=== PATIENT | male | born 1950 | race Caucasian/White ===

== ENCOUNTER 2020-05-01 09:00 | Day surgery (SDC) | payer OTHER ==
[~2020-05-01] VITALS: Ht 172.7 cm; Wt 84.0 kg
[2020-05-01] MEDS ORDERED: ceFAZolin SODIUM IV Push 1 GM VIAL. IVP ONE (09:30)
--- NOTE | 2020-05-01 09:44 | RAD ---
EXAM: PA, oblique and lateral views right hand DATE: 05/01/2020 9:06 AM INDICATION: Reason: partial amputation to 3rd digit / Spl. Instructions: / History: COMPARISON: No Prior FINDINGS/ IMPRESSION: 1. Transverse, displaced fracture of the tuft of the distal phalanx of the right middle finger with marked soft tissue irregularity. This is likely an open fracture. 2. Multifocal degenerative changes with proliferative changes centered at the index and middle finger MCP joint and thumb IP joint. Electronically signed by: Daniel Wu MD (05/01/2020 9:41 AM) RICHARD
[2020-05-01] MEDS ORDERED: GENTAMICIN SULFATE 380 MG in IV NORMAL SALINE 100ML 100 ML IV ONE (10:00)
[2020-05-01] MEDS ORDERED: fentaNYL PF VIAL 100 MCG/2 ML VIAL ONE ×2 (10:03→12:15)
[2020-05-01] MEDS ORDERED: PROPOFOL 10 MG/ML (20ML) VIAL. IV ONE (10:03)
[2020-05-01] MEDS ORDERED: DEXAMETHASONE SOD PHOS 4 MG/ML VIAL ONE (10:04)
[2020-05-01] MEDS ORDERED: ONDANSETRON PF 4 MG/2 ML VIAL. ONE (10:04)
[2020-05-01] MEDS ORDERED: LIDOCAINE 2% PF 5 ML VIAL. ONE (10:04)
[2020-05-01] MEDS ORDERED: BUPIVACAINE MPF 0.5% 30 ML VIAL. ONE ×2 (11:01→11:46)
--- NOTE | 2020-05-01 11:05 | PHYS DOC ---
Past Medical History Past Medical History: High Cholesterol, Hypertension Past Surgical History: No Surgical History Smoking Status: Current Every Day Smoker Alcohol Use: Occasionally General Adult EDM: Chief Complaint: TRAUMA ALERT HPI: HPI: History obtained from patient. Patient is a 16-year-old male who denies any past medical history who presents with chief complaint of right long finger injury. Patient states just prior to arrival he was working on mechanical parts when he got his finger pinched between them. He pulled his hand back and noted a near amputation of the distal portion of his third finger on the right. He does state he is right-handed. He states the pain is minimal. States the bleeding is been well controlled. Denies numbness or tingling. States he is current on his tetanus. No other complaints. Review of Systems: Review of Systems: Constitutional: Denies fever or chills. [] Eyes: Denies change in visual acuity. [] HENT: Denies nasal congestion or sore throat. [] Respiratory: Denies cough or shortness of breath. [] Cardiovascular: Denies chest pain or edema. [] GI: Denies abdominal pain, nausea, vomiting, bloody stools or diarrhea. [] : Denies dysuria. [] Musculoskeletal positive for right long finger amputation Integument: Denies rash. [] Neurologic: Denies headache, focal weakness or sensory changes. [] Endocrine: Denies polyuria or polydipsia. [] Lymphatic: Denies swollen glands. [] Psychiatric: Denies depression or anxiety. [] Heart Score: Risk Factors: Risk Factors: DM, Current or recent (<one month) smoker, HTN, HLP, family history of CAD, obesity. Risk Scores: Score 0 - 3: 2.5% MACE over next 6 weeks - Discharge Home Score 4 - 6: 20.3% MACE over next 6 weeks - Admit for Clinical Observation Score 7 - 10: 72.7% MACE over next 6 weeks - Early Invasive Strategies Current Medications: Current Medications Medications (Trade) Dose Ordered Sig/Cipriano Start Time Stop Time Status Last Admin Dose Admin Cefazolin Sodium (Ancef) 1 gm 1X ONCE 05/01/20 09:30 05/01/20 09:31 DC 05/01/20 09:20 1 GM Dexamethasone Sodium Phosphate (Decadron) 4 mg STK-MED ONCE 05/01/20 10:04 05/01/20 10:04 DC Fentanyl Citrate (Fentanyl 2ml Vial) 100 mcg STK-MED ONCE 05/01/20 10:03 05/01/20 10:04 DC Gentamicin Sulfate 380 mg/ Sodium Chloride 109.5 ml @ 109.5 mls/ hr 1X ONCE 05/01/20 10:00 05/01/20 10:59 DC 05/01/20 09:56 109.5 MLS/HR Lidocaine HCl (Lidocaine Pf 2% Vial) 5 ml STK-MED ONCE 05/01/20 10:04 05/01/20 10:04 DC Ondansetron HCl (Zofran) 4 mg STK-MED ONCE 05/01/20 10:04 05/01/20 10:04 DC Propofol (Diprivan) 200 mg STK-MED ONCE 05/01/20 10:03 05/01/20 10:04 DC Allergies: Allergies: Allergies Coded Allergies Type Severity Reaction Last Updated Verified No Known Drug Allergies 05/01/20 No Physical Exam: PE: Constitutional: Well developed, well nourished, no acute distress, non-toxic appearance. [] HENT: Normocephalic, atraumatic, bilateral external ears normal, oropharynx moist, no oral exudates, nose normal. [] Eyes: PERRLA, EOMI, conjunctiva normal, no discharge. [] Neck: Normal range of motion, no tenderness, supple, no stridor. [] Cardiovascular:Heart rate regular rhythm, no murmur [] Lungs & Thorax: Bilateral breath sounds clear to auscultation [] Abdomen: soft, no tenderness, no masses, no pulsatile masses. [] Skin: Warm, dry, no erythema, no rash. [] Back: No tenderness, no CVA tenderness. [] Extremities: R Hand: Open fracture near complete amputation noted to the distal portion of the third right digit. Laceration begins distal to the DIP. Bleeding well controlled. Bone visualized. Flexion and extension mechanism intact. +2-4 radial pulse on the right. Cardinal hand movements intact. Neurologic: Alert and oriented X 3, normal motor function, normal sensory function, no focal deficits noted. [] Psychologic: Affect normal, judgement normal, mood normal. [] Current Patient Data: Labs: Laboratory Tests Test 05/01/20 10:01 SARS-CoV-2 Antigen (Rapid) Negative (NEGATIVE) Vital Signs: Vital Signs Date Time Temp Pulse Resp B/P (MAP) Pulse Ox O2 Delivery O2 Flow Rate FiO2 05/01/20 09:02 98.3 73 16 129/75 (93) 93 Room Air 98.3 EKG: EKG: [] Radiology/Procedures: Radiology/Procedures: [facility] [address] [place] [address] IMAGING REPORT Signed PATIENT: LARY LINDSAY ACCOUNT: [id number] : 1950 LOCATION: ER AGE: 69 SEX: M EXAM STATUS: PRE ER ORD. PHYSICIAN: BRANDEE ARNOLD DO REASON: partial amputation to 3rd digit PROCEDURE: HAND RIGHT 3V EXAM: PA, oblique and lateral views right hand DATE: 05/01/2020 9:06 AM INDICATION: Reason: partial amputation to 3rd digit / Spl. Instructions: / History: COMPARISON: No Prior FINDINGS/ IMPRESSION: 1. Transverse, displaced fracture of the tuft of the distal phalanx of the right middle finger with marked soft tissue irregularity. This is likely an open fracture. 2. Multifocal degenerative changes with proliferative changes centered at the index and middle finger MCP joint and thumb IP joint. Electronically signed by: Daniel Wu MD (05/01/2020 9:41 AM) [facility] DICTATED and SIGNED BY: DANIEL WU MD DATE: 05/01/20 0941 [] Course & Med Decision Making: Course & Med Decision Making Pertinent Labs and Imaging studies reviewed. (See chart for details) [] Patient is a very pleasant right-handed 69-year-old male who presents with chief complaint of right third digit near complete amputation. Clinically the patient does have obvious open fracture with near complete amputation. Plain film imaging consistent with this. Patient states he is current on tetanus. Wound irrigation performed. He was given gentamicin and Ancef given the dirty nature of the wound. Orthopedic surgery was consulted for operative intervention including washout and fixation. Patient was made n.p.o. He will be taken to surgery for further care. Dragon Disclaimer: Dragon Disclaimer: This electronic medical record was generated, in whole or in part, using a voice recognition dictation system. Departure Departure Impression: Primary Impression: Traumatic amputation of digit of right hand Qualified Codes: S68.119A - Complete traumatic metacarpophalangeal amputation of unspecified finger, initial encounter Disposition: 09 ADMITTED INPT THIS HOSP Condition: STABLE Referrals: NO PCP (PCP) BRANDEE ARNOLD DO May 01, 2020 11:05
[2020-05-01] MEDS ORDERED: IV RINGERS,LACTATED 1000ML 1,000 ML IV SCH (11:19)
[2020-05-01] MEDS ORDERED: ONDANSETRON PF 4 MG/2 ML VIAL. IV PRN (11:30)
[2020-05-01] MEDS ORDERED: fentaNYL PF VIAL 100 MCG/2 ML VIAL IV PRN ×2 (11:30)
[2020-05-01] MEDS ORDERED: HYDROmorphone 2 MG/ML VIAL IV PRN (11:30)
[2020-05-01] MEDS ORDERED: PROCHLORPERAZINE 10 MG/2 ML VIAL. IV PRN (11:30)
[2020-05-01] MEDS ORDERED: MORPHINE SULFATE 2 MG/ML VIAL. IV PRN (11:30)
[2020-05-01] MEDS ORDERED: NEOMY/BACITR/POLYMYXIN OINT PACKET. TP ONE ×2 (11:33→12:00)
[2020-05-01] MEDS ORDERED: ePHEDrine PF IN SALINE 50 MG/10 ML SYRINGE. IV ONE (12:05)
--- NOTE | 2020-05-01 12:23 | CONS ---
DATE OF CONSULTATION: 05/01/2020 EMERGENCY DEPARTMENT CONSULTATION CHIEF COMPLAINT: Crush injury to right long finger. HISTORY OF PRESENT ILLNESS: The patient is a 69-year-old male who was at work as a construction equipment mechanic, working on some mechanical parts when he got his finger forcefully pinched between them and had the end of his finger nearly cut off as he pulled his finger back, and had a large laceration at the base of his nail bed with an open fracture. He presented to the Emergency Department and indicates minimal pain. PAST MEDICAL HISTORY: Significant for hypertension and high cholesterol. PAST SURGICAL HISTORY: No previous surgical history. SOCIAL HISTORY: He does smoke every day half a pack per day, occasional alcohol use, denies nonprescription drug use. FAMILY HISTORY: Notes no significant family history. ALLERGIES: No drug allergies. MEDICATIONS: He is on minimal medications for cholesterol and hypertension. REVIEW OF SYSTEMS: He denies any loss of consciousness. Bleeding has not been excessive. He is right hand dominant and only complains of the pain and deformity of his right long finger. Tetanus is reportedly up-to-date. He does have some paresthesia at the tip of the finger, but no other numbness or tingling in the hand and no other injury. He denies any chest pain, shortness of breath, recent febrile illness, constitutional complaints or other problems. Other review of systems is negative. PHYSICAL EXAMINATION: VITAL SIGNS: Temperature 98.3, pulse 73, respirations 16, blood pressure 129/75, 93% saturation on room air. HEENT: Atraumatic, normocephalic. HEART: Regular rate and rhythm. LUNGS: Clear to auscultation bilaterally. ABDOMEN: Benign. EXTREMITIES: On examination of the right hand reveals an oblique laceration with near traumatic amputation and his finger nail is avulsed. He has open bone exposure at the site of the open fracture. Capillary refill is overall a little delayed, but intact otherwise. He appears to have normal alignment and stability of the DIP joint as well as his other joints in the hand along with an intact flexor and extensor function. Normal examination of the contralateral hand, bilateral elbows and wrists with a small slight paresthesia to his right long fingertip. IMAGING: X-rays show an open distal phalanx fracture with displacement. Joint is well maintained at the distal interphalangeal joint. IMPRESSION: Open distal phalanx fracture with nail bed injury. TREATMENT PLAN: From a crush injury treatment plan, I went over with him the high risk of infection with this injury, the necessity of washing it out thoroughly, repairing the nail bed, pinning it and using the fingernail as a splint. His vascularity of the finger appears reasonable to try to save the fingertip, although it may be a possibility that blood supply is somehow compromised that he could lose the finger and require later amputation either due to bad blood supply or infection or failure to heal, among others. He does wish to proceed with surgical evaluation and treatment urgently as he has been n.p.o. except sips of water in the morning today and we will urgently go to the operating room. ANGELIQUE FERREIRA MD DR: JAIR/malvin JOB#: [id number] / [id number]
[2020-05-01] MEDS ORDERED: HYDROcodone/APAP 5/325MG 1 TAB TABLET PO ONE (13:15)
[2020-05-01 13:28] VITALS: BP 125/39
--- NOTE | 2020-05-05 17:30 | PDOC4 ---
Operative Note Operative Note Date of surgery: 05/01/2020 Preoperative diagnosis: Partial amputation of right long finger with open distal phalanx fracture and nailbed injury Postoperative diagnosis: Same Operative procedure: Irrigation debridement with open reduction fixation open distal phalanx fracture and nailbed repair Surgeon: Stew Anesthesia: General Estimated blood loss: 15 cc Complications: None Operative indications: Please see my dictated orthopedic emergency department consultation for detailed operative indications and note that he sustained a crush injury to his right long fingertip with near amputation open distal phalanx fracture and I went over with him the necessity of open treatment and the risk of infection and nailbed deformity. He does appear to have reasonable distal blood supply from the intact tissue he does want to proceed with surgical evaluation and treatment and understands that he will likely have a pin in his finger for a few weeks to help stabilize the finger fracture for healing. Operative text: Patient was identified procedure verified patient placed in the supine position on the operating table. After adequate amounts of general anesthesia were administered the right upper extremity was prepped and draped in standard sterile fashion with an upper arm tourniquet. After timeout was performed patient procedure identified and verified thorough irrigation was first carried out with normal saline solution and bulb syringe. The remaining attached fingernail was detached from the nail bed and was cleaned of tissue trimmed and placed in dilute Betadine solution. There was minimal devitalized tissue which was lightly debrided and the fingertip was then aligned and fixated with a small K wire with the distal phalange fragments and excellent reduction under fluoroscopic guidance. Nylon sutures were placed in the oblique laceration to the finger pad for stabilization nailbed repair was carried out with catgut suture and the fingernail was reattached at the base of the nail fold with 3-0 nylon suture and it was secured distally to act as a splint with nylon suture in a simple fashion. Thorough irrigation again carried out normal saline solution a protective ball was applied over the end of the K wire to avoid injury and sterile dressings were applied consisting of Xeroform gauze 4 x 4's and tube gauze. Tourniquet was not inflated throughout the procedure and tissue was noted to remain well perfused to the distal fingertip. Patient was returned to recovery room in stable condition having tolerated procedure well ANGELIQUE FERREIRA MD May 05, 2020 17:30
== END 2020-05-01 14:02 | disposition home or self-care (01) ==
LOC: ER 09:00 → SDC 11:50
PROVIDERS: ATTEND Orthopaedic Surgery
DX: S62.632A Displaced fracture of distal phalanx of right middle finger, initial encounter for closed fracture (principal); S67.192A Crushing injury of right middle finger, initial encounter; Z20.828 Contact with and (suspected) exposure to other viral communicable diseases; Z87.891 Personal history of nicotine dependence; Z72.89 Other problems related to lifestyle; Z79.899 Other long term (current) drug therapy; Z98.890 Other specified postprocedural states; X58.XXXA Exposure to other specified factors, initial encounter; Y93.89 Activity, other specified; Y92.89 Other specified places as the place of occurrence of the external cause; Y99.8 Other external cause status
CPT/HCPCS: 11760; 26765; 73130; 87426; A7015; C9803; J0690; J1100; J1580; J2405; J2704; J3010; J7120; U0003; 76000; J3490